=== PATIENT | female | born 1990 | race Caucasian/White ===

== ENCOUNTER 2017-06-06 17:32 | Emergency (ER) | payer OTHER ==
--- NOTE | 2017-06-06 18:45 | ED Physician Documentation ---
PD HPI ABD PAIN - Stated complaint Stated Complaint: SPOTTING/11WEEKS - Chief complaint Chief Complaint: Abd Pain - History obtained from History obtained from: Patient - History of Present Illness Timing - onset: Other ( at 11 weeks by dating ultrasound earlier this month with who has never received RhoGam.So presumed blood type Rh+. She has had a small amount of vaginal spotting in the last 2 days without cramping or significant pain. No fevers.) Review of Systems Constitutional: denies: Fever, Chills Cardiac: reports: Reviewed and negative Respiratory: reports: Reviewed and negative PD PAST MEDICAL HISTORY - Past Medical History Past Medical History: No - Past Surgical History Past Surgical History: No - Allergies Allergies/Adverse Reactions: Allergies Allergy/AdvReac Type Severity Reaction Status Date / Time No Known Drug Allergies Allergy Verified 06/06/17 17:43 - Social History Does the pt smoke?: No Smoking Status: Never smoker Does the pt drink ETOH?: No Does the pt have substance abuse?: No - Immunizations Immunizations are current?: Yes - POLST Patient has POLST: No PD ED PE NORMAL - Vitals Vital signs reviewed: Yes - General General: Alert and oriented X 3, No acute distress - Abdomen Abdomen: Normal bowel sounds, Soft, Non tender - Extremities Extremities: No edema, No calf tenderness / cord - Neuro Neuro: Alert and oriented X 3, Normal speech - Psych Psych: Normal mood, Normal affect Results - Vitals Vitals: Vital Signs - 24 hr 06/06/17 06/06/17 17:41 20:00 Temperature 36.4 C L 37.0 C Heart Rate 76 72 Respiratory 18 10 L Rate Blood Pressure 126/75 104/63 O2 Saturation 100 95 Oxygen O2 Source Room air - Labs Labs: Laboratory Tests 06/06/17 06/06/17 06/06/17 18:36 19:10 19:10 WBC 6.0 RBC 4.24 Hgb 12.6 Hct 37.9 MCV 89.4 MCH 29.6 MCHC 33.1 RDW 13.1 Plt Count 234 MPV 8.7 Neut # 3.6 Lymph # 2.0 [place] # 0.4 Eos # 0.0 Baso # 0.0 Absolute Nucleated RBC 0.00 Nucleated RBCs 0.0 Sodium 138 Potassium 3.8 Chloride 105 Carbon Dioxide 25 Anion Gap 8.0 BUN 9 Creatinine 0.6 Estimated GFR (MDRD) 118 Glucose 97 Calcium 9.3 HCG, Quant Urine Color YELLOW Urine Clarity CLEAR Urine pH 6.0 Ur Specific [place] 1.010 Urine Protein NEGATIVE Urine Glucose (UA) NEGATIVE Urine Ketones NEGATIVE Urine Occult Blood SMALL H Urine Nitrite NEGATIVE Urine Bilirubin NEGATIVE Urine Urobilinogen 1 (NORMAL) Ur Leukocyte Esterase NEGATIVE Urine RBC 0-5 Urine WBC 0-3 Ur Squamous Epith Cells MANY Squamous H Urine Bacteria Few Urine Mucus Few Strands Ur Microscopic Review INDICATED Urine Culture Comments NOT INDICATED Blood Type 06/06/17 06/06/17 19:10 19:10 WBC RBC Hgb Hct MCV MCH MCHC RDW Plt Count MPV Neut # Lymph # [place] # Eos # Baso # Absolute Nucleated RBC Nucleated RBCs Sodium Potassium Chloride Carbon Dioxide Anion Gap BUN Creatinine Estimated GFR (MDRD) Glucose Calcium HCG, Quant 6547.00 Urine Color Urine Clarity Urine pH Ur Specific [place] Urine Protein Urine Glucose (UA) Urine Ketones Urine Occult Blood Urine Nitrite Urine Bilirubin Urine Urobilinogen Ur Leukocyte Esterase Urine RBC Urine WBC Ur Squamous Epith Cells Urine Bacteria Urine Mucus Ur Microscopic Review Urine Culture Comments Blood Type O POSITIVE PD MEDICAL DECISION MAKING - ED course ED course: 27-year-old woman with threatened , no heart rate seen on sono. Given that she recently had an ultrasound showing a heart rate is portends a poor prognosis for the . Conservative care initially was advised and follow -up as well. Departure - Departure Disposition: 01 Home, Self Care Clinical Impression: Threatened affecting intrauterine Condition: Good Record reviewed to determine appropriate education?: Yes Instructions: ED Miscarriage Poss Comments: RECKECH WITH YOUR OB IN 1 WEEK, MAYBE FOR REPEAT ULTRASOUND. RETURN FOR HEAVY BLEEDING.
[2017-06-06 18:48] LABS: BILIRUBIN,URINE NEGATIVE (NEGATIVE)
[2017-06-06 18:50] LABS: UA w/ MICROSCOPIC CHARGE YES
[2017-06-06 18:53] LABS: UR CULTURE IF IND NOT INDICATED; WBC,URINE 0-3 /HPF (0-5)
[2017-06-06 19:20] LABS: BASOPHILS % (AUTO) 0.8 %; EOSINOPHILS % (AUTO) 0.7 %; HCT - HEMATOCRIT 37.9 % (37.0-47.0); HGB - HEMOGLOBIN 12.6 g/dL (12.0-16.0); LYMPHOCYTES % (AUTO) 33.4 %; MEAN CORPUSCULAR HEMOGLOBIN 29.6 pg (27.0-31.0); MEAN CORPUSCULAR HGB CONC 33.1 g/dL (32.0-36.0); MEAN CORPUSCULAR VOLUME 89.4 fL (81.0-99.0); MEAN PLATELET VOLUME 8.7 fL (7.9-10.8); MONOCYTES # (AUTO) 0.4 10^3/uL (0.0-1.0); NEUTROPHILS # (AUTO) 3.6 10^3/uL (1.5-6.6); NEUTROPHILS % (AUTO) 59.1 %; RED BLOOD COUNT 4.24 10^6/uL (4.20-5.40); RED CELL DISTRIBUTION WIDTH 13.1 % (12.0-15.0)
[2017-06-06 19:29] LABS: CALCIUM 9.3 mg/dL (8.5-10.3); CREATININE 0.6 mg/dL (0.4-1.0); POTASSIUM 3.8 mmol/L (3.5-5.0)
[2017-06-06 20:02] VITALS: BP 104/63
--- NOTE | 2017-06-06 20:22 | Ultrasound Preliminary Report ---
Exam: US OB First Trimester IMPRESSION: Single intrauterine , 8 weeks 5 days gestational age by crown-rump length, with lack of heartbeat compatible with demise. CHANDU The critical result notification system was initiated by Dr. Jose Stovall at 20:17 hrs on 06/06/17. The above critical findings were discussed with Dr. Roper by Dr. Jose Stovall at 20:20 hrs on . SITE ID: [id number]
--- NOTE | 2017-06-06 20:25 | Ultrasound Report ---
EXAM: FIRST TRIMESTER OBSTETRIC ULTRASOUND (Less than 11 weeks) EXAM DATE: 06/06/2017 07:58 PM. CLINICAL HISTORY: Vaginal bleeding. Spotting. Low back pain. . LMP: 03/10/2017. COMPARISONS: None. TECHNIQUE: Transabdominal and transvaginal ultrasound examination with static image documentation. CLINICAL DATES: EGA 11 with YASEMIN 12/20/2017 based on LMP. ASSESSMENT: Gestational Sac: Single intrauterine. Mean gestational sac diameter: 37.3 mm = 9 weeks 0 days. Embryo: CRL (crown-rump length) 21.8 mm = 8 weeks 5 days. Cardiac activity: 0 Beats per minute. Yolk sac: Nonvisualized. Amniotic fluid: Not accurately assessed at this gestational age. Early placenta: Not visible at this gestational age. Other: No perigestational fluid collection demonstrated. MATERNAL STRUCTURES: Uterus: Anteverted. Unremarkable. Cervix: Closed. Right Ovary: Unremarkable. Left Ovary: Unremarkable. Free Fluid: None. Other: None. IMPRESSION: Single intrauterine , 8 weeks 5 days gestational age by crown-rump length, with lack of heartbeat compatible with demise. DANAYA The critical result notification system was initiated by Dr. Jose Stovall at 20:17 hrs on 06/06/17. The above critical findings were discussed with Dr. Roper by Dr. Jose Stovall at 20:20 hrs on . Referring Provider Line: [phone] SITE ID: [id number]
== END 2017-06-06 20:20 | disposition home or self-care (01) ==
LOC: ED 17:32
DX: O20.0 Threatened abortion (principal); Z3A.11 11 weeks gestation of pregnancy
CPT/HCPCS: 36415; 76801; 76817; 80048; 81001; 81003; 84702; 85025; 86900; 86901; 87086; 99283

== ENCOUNTER 2018-09-16 09:54 | Day surgery (SDC) | payer OTHER ==
--- NOTE | 2018-09-16 09:13 | ANESTHESIA ---
Pre-Anesthesia VS, & Labs - Diagnosis Desires sterility - Procedure Lap. salpingectomy Height 5 ft 5 in Weight (kg) 100 kg Body Mass Index 33.4 - NPO >8 hours - Is Patient ?: No - Lab Results Lab results reviewed: No Home Medications and Allergies Home Medications: Ambulatory Orders No Known Home Medications 09/09/18 No Known Home Medications 09/09/18 Allergies/Adverse Reactions: Allergies Allergy/AdvReac Type Severity Reaction Status Date / Time No Known Drug Allergies Allergy Verified 09/09/18 09:40 Anes History & Medical History - Anesthetic History Anesthesia Complications: reports: No previous complications Family history of Anesthesia Complications: Denies Family history of Malignant Hyperthermia: Denies - Medical History Cardiovascular: reports: None Pulmonary: reports: None Gastrointestinal: reports: None Urinary: reports: None Neuro: reports: None Musculoskeletal: reports: None Endocrine/Autoimmune: reports: None, Other Blood Disorders: reports: None Skin: reports: None - Surgical History Gynecologic: Dilation and currettage Exam General: Alert, Oriented x3 Dental: Other (Some chipped/issing) Mouth Opening: Greater than 4 Fingerbreadths Neck Mobility: Normal Mallampati classification: I Thyromental Distance: greater than 6 cm Respiratory: Lungs clear Cardiovascular: Regular rate Mental/Cognitive Status: Alert/Oriented X3 Cognitive Status: Within normal limits Plan Anesthesia Type: General Consent for Procedure(s) Verified and Reviewed: Yes Code Status: Attempt Resuscitation ASA classification: 2-Mild systemic disease Is this case an emergency?: No
[2018-09-16] MEDS ORDERED: LIDOCAINE 1%-EPI 1:100000 30 ML MDV ONE (10:19)
[2018-09-16] MEDS ORDERED: BUPIVACAINE 0.25%-EPI 1:200000 PF 30 ML VIAL ONE (10:19)
[2018-09-16] MEDS ORDERED: LACTATED RINGERS 1,000 ML IV ONE ×3 (10:21→13:40)
[2018-09-16 10:50] LABS: HCG UR QUAL NEGATIVE
[2018-09-16] MEDS ORDERED: BUPIVACAINE 0.25% PF 30 ML VIAL ONE (11:19)
[2018-09-16] MEDS ORDERED: fentaNYL 250 MCG/5 ML VIAL IVP ONE (12:10)
[2018-09-16] MEDS ORDERED: LIDOCAINE-MPF 2% 5 ML VIAL IM ONE (12:10)
[2018-09-16] MEDS ORDERED: ONDANSETRON 4 MG/2 ML VIAL IVP ONE (12:10)
[2018-09-16] MEDS ORDERED: DEXAMETHASONE 4 MG/ML VIAL IVP ONE (12:10)
[2018-09-16] MEDS ORDERED: PROPOFOL 200 MG/20 ML VIAL IVP ONE (12:10)
[2018-09-16] MEDS ORDERED: ROCURONIUM 50 MG/5 ML VIAL IVP ONE (12:10)
[2018-09-16] MEDS ORDERED: MIDAZOLAM 2 MG/2 ML VIAL IVP ONE (12:10)
[2018-09-16] MEDS ORDERED: ONDANSETRON 4 MG/2 ML VIAL IVP PRN (14:02)
[2018-09-16] MEDS ORDERED: HYDROcod/ACETAM 10 MG/325 MG TABLET PO PRN (14:02)
[2018-09-16 15:37] VITALS: BP 108/64
--- NOTE | 2018-09-16 16:05 | OPERATIVE REPORT ---
Operative Report - General Procedure Date: 09/16/18 Planned Procedure: Laparoscopic Bilateral Salpingectomy, LEEP Pre-Op Diagnosis: Desired Sterilzation, High-Grade Cervical Dysplasia Procedure Performed: Laparoscopic Bilateral Salpingectomies, Loop Electrocautery Excisional Procedure Post Op Diagnosis: TRUDI - Procedure Note Primary Surgeon: Dr. Nancy Shaikh Secondary Surgeon: Dr. Don Corral Anesthesia Provider: EMANUEL Gramajo Anesthesia Technique: General ET tube, Local Pathology: Left fallopian tube, right fallopian tube, LEEP right, LEEP left, LEEP posterior, Endocervical curettage IV Fluids (mL): 1,100 Estimated Blood Loss (mL): 250 Urine Output (mL): 20 Complications: Heavy bleeding at LEEP site - Other Other Information/Narrative: Indication: The patient is a 28-year-old 5 para 4 abortus 1 female here for laparoscopic bilateral salpingectomies and LEEP procedure. Surgery is for permanent sterilization and management of high-grade cervical dysplasia (FINA-2). She and her spouse feel they have completed their childbearing and desires sterilization. Her spouse cannot consider vasectomy, as he is not permitted to have elective surgery while awaiting a medical board. They are desiring long-term permanent sterilization. Her menses are regular, light, and not painful. She does not wish to continue hormonal control for the long- term, the options of long-acting reversible contraceptives have been reviewed previously. She also has a history of high-grade Pap smear. Colposcopy performed in the clinic noted FINA-2 at the 5 o'clock position all the biopsy sites noted FINA-1. Risks, benefits, limitations, alternatives, and expectations or surgery were discussed, and the consent was reviewed and signed prior to the date of surgery. Findings: The ovaries appeared slightly enlarged bilaterally with no discrete cysts or masses noted. The fallopian tubes were also normal in appearance. The uterus was anteverted and normal in appearance. There were no endometriosis lesions or adhesions noted throughout the abdomen or pelvis. During the LEEP, application of Lugol's solution to the cervix noted a large transformation zone at the cervix, which was completely excised with a LEEP. She had a notable enterocele, just posterior to the posterior LEEP biopsy site. There was evidence of a healed sidewall vaginal laceration, which was left in situ.. Procedure: The patient was taken to the operating room, where general endotracheal anesthesia was administered without difficulty. She was then positioned with her lower extremities in yellow-fin stirrups. Perineum, vagina, and abdomen were then prepped and draped in sterile fashion, and an in-and-out catheterization was performed. Time out was then performed. Attention was first turned to placement of a uterine manipulator. A sterile bivalve speculum was inserted, and the cervix grasped with a single-toothed te naculum. The cervix was then dilated until a HUMI uterine manipulator could be placed and balloon inflated. The tenaculum and speculum were then removed. Attention was then turned to the laparoscopy. 0.25% Marcaine, plain, was injected infraumbilically, then a 7-mm vertical skin incision made. A Verrees needle was then inserted through the anterior layers of the abdominal wall with saline drop test suggesting intraperitoneal placement. Carbon dioxide gas insufflation was then performed with appropriate opening pressures noted. Once 2 L of gas was instilled, a 0-degree, 5 mm laparoscope was inserted into a 5 mm trocar and passed through the anterior layers of the abdominal wall using Optiview technique. The abdomen was visualized, then 2 additional ports placed at the right and left lower quadrants, first instilling local anesthetic then placing 5 mm ports. The patient was placed into Trendelenberg and bowel swept out of the cul-de-sac. The left distal fallopian tube was grasped and pulled anteriorly while the left tubo-ovarian ligament was cross-clamped, cauterized, and cut using the PlasmaKinetic. This incision was then extended medially across the mesosalpinx until the cornual region was reached. The tube was then cauterized and cut, it from the uterus. The tube was then removed from the pelvic through the trocar. Attention was then turned to the right side, where the dissection was completed in similar fashion. Here some bleeding was noted adjacent to the ovarian vascular pedicle. This was controlled with Bovie cauterye. The right tube was dissected and removed from the abdoment through the trocar. At this point, the laparoscopic procedure was deemed complete. The gas was allowed to escape, and the trocars removed. The incisions were then closed with 4-0 monocryl in a subcuticular fashion followed by Dermabond. Attention was then turned to the patient's perineum, where the uterine manipulator was removed. An insulated Graves speculum was then inserted into the vagina, and Lugol's solution applied to the cervix. 1% lidocaine with epinephrine was then injected for a paracervical block. An insulated side-wall retractor was also needed given the width of the transformation zone. A 2 x 1 cm cautery loop was then utilized to excise first the right transformation zone followed by the left transformation zone. Heavy bleeding was noted quickly after the start of the procedure. Additional non-stained tissue was noted more posteriorly so a third pass was made at the posterior aspect of the transformation zone in order to ensure excision of the FINA-2 that had been noted at the 5 o'clock position on her colposcopy. With this last pass the tissue removed was notably adjacent to the enterocele, and a defect in the cervico- vaginal fascia was noted. Endocervical curettage was then performed, followed by rollerball cauterization over the bed of the LEEP. At the posterior aspect, the cauterization was limited to the edges of the fascial defect in order to avoid any injury to the underlying rectum. Here a running suture of 3-0 Vicryl was placed to reapproximate the fascial defect, followed by [id number] sutures as needed to achieve hemostasis. Care was taken to avoid injury to the rectum. Additional pressure and Monsels solution was applied as needed until hemostasis was achieved. At this point, the procedure was deemed complete. The patient was then replaced supine, awakened, extubated, and transferred to the PACU in stable condition. There were no complications. Sponge, lap, and needle count were correct x 3.
== END 2018-09-16 09:55 | disposition home or self-care (01) ==
LOC: SDS 09:54
PROVIDERS: ATTEND Obstetrics & Gynecology
PROC: 0UBC7ZZ Excision of Cervix, Via Natural or Artificial Opening (ICD-10-PCS; principal; 2018-09-16 11:15)
PROC: 0UT74ZZ Resection of Bilateral Fallopian Tubes, Percutaneous Endoscopic Approach (ICD-10-PCS; 2018-09-16 11:15)
DX: N87.1 Moderate cervical dysplasia (principal); Z30.2 Encounter for sterilization; E66.9 Obesity, unspecified; Z68.33 Body mass index [BMI] 33.0-33.9, adult
CPT/HCPCS: 57522; 58661; 81025; J3010; J7120

== ENCOUNTER 2018-10-02 22:02 | Emergency (ER) | payer OTHER ==
[2018-10-02 22:49] LABS: BASOPHILS # (AUTO) 0.1 10^3/uL (0.0-0.1); BASOPHILS % (AUTO) 0.8 %; EOSINOPHILS % (AUTO) 0.6 %; HGB - HEMOGLOBIN 11.3 g/dL (12.0-16.0); LYMPHOCYTES # (AUTO) 1.9 10^3/uL (1.5-3.5); LYMPHOCYTES % (AUTO) 24.2 %; MEAN CORPUSCULAR HEMOGLOBIN 28.5 pg (27.0-31.0); MEAN CORPUSCULAR HGB CONC 32.2 g/dL (32.0-36.0); MEAN CORPUSCULAR VOLUME 88.3 fL (81.0-99.0); MEAN PLATELET VOLUME 9.2 fL (7.9-10.8); MONOCYTES # (AUTO) 0.4 10^3/uL (0.0-1.0); MONOCYTES % (AUTO) 5.2 %; NEUTROPHILS # (AUTO) 5.4 10^3/uL (1.5-6.6); NEUTROPHILS % (AUTO) 69.2 %; PLT - PLATELET COUNT 250 10^3/uL (130-450); RED BLOOD COUNT 3.96 10^6/uL (4.20-5.40); RED CELL DISTRIBUTION WIDTH 13.5 % (12.0-15.0); WHITE BLOOD COUNT 7.7 x10^3/uL (4.8-10.8)
[2018-10-02] MEDS ORDERED: MORPHINE 2 MG/ML CARPUJECT IVP STA (22:57)
[2018-10-02 23:02] LABS: ALBUMIN 4.1 g/dL (3.2-5.5); ALBUMIN/GLOBULIN RATIO 1.2 (1.0-2.2); BILIRUBIN,TOTAL 0.4 mg/dL (0.2-1.0); CREATININE 0.7 mg/dL (0.4-1.0); TOTAL PROTEIN 7.5 g/dL (6.7-8.2)
[2018-10-02] MEDS ORDERED: IOVERSOL 320 100 ML VIAL IVP ONE ×2 (23:08→23:40)
--- NOTE | 2018-10-02 23:18 | ED Physician Documentation ---
History of Present Illness - Stated complaint Stated Complaint: CHEST PX - Chief complaint Chief Complaint: Cardiac - History obtained from History obtained from: Patient - History of Present Illness Timing: Today Pain level max: 8 Pain level now: 8 - Additonal information Additional information: 28-year-old female who underwent a bilateral salpingectomy on 09/16, started developing left-sided back pain today, now spreading up to the left shoulder and around the rib cage. States worse with breathing. Movement makes it worse as well. Has not taken anything for the pain. Had her postoperative visit today. No testing performed at that time. Does feel like it is hard to take a deep breath as well. No vomiting. No fevers. No diarrhea. 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 - Present Medications Home Medications: Ambulatory Orders Medication Instructions Recorded Confirmed Ibuprofen [Motrin] 800 mg PO Q8H PRN #30 tablet 10/03/18 Oxycodone HCl/Acetaminophen 1 - 2 each PO Q6H PRN #14 tablet 10/03/18 [Percocet 5-325 mg Tablet] - Allergies Allergies/Adverse Reactions: Allergies Allergy/AdvReac Type Severity Reaction Status Date / Time No Known Drug Allergies Allergy Verified 10/02/18 22:08 - Social History Does the pt smoke?: No Smoking Status: Never smoker Does the pt drink ETOH?: No Does the pt have substance abuse?: No - Immunizations Immunizations are current?: Yes - POLST Patient has POLST: No PD ED PE NORMAL - Vitals Vital signs reviewed: Yes - General General: Alert and oriented X 3, No acute distress, Well developed/nourished - HEENT HEENT: Moist mucous membranes - Neck Neck: Supple, no meningeal sign - Cardiac Cardiac: RRR, Strong equal pulses - Respiratory Respiratory: No respiratory distress, Clear bilaterally - Abdomen Abdomen: Soft, Non tender, Non distended - Back Back: No CVA TTP, No spinal TTP (No midline tenderness to palpation or percussion. No step-off or deformity. mild tenderness to the left of the thoracic spine.) - Derm Derm: Warm and dry - Extremities Extremities: No edema, No calf tenderness / cord - Neuro Neuro: Alert and oriented X 3 - Psych Psych: Normal mood, Normal affect Results - Vitals Vitals: Vital Signs - 24 hr 10/02/18 10/02/18 10/02/18 22:08 23:20 23:42 Temperature 36.6 C Heart Rate 75 76 66 Respiratory 16 20 24 Rate Blood Pressure 119/66 104/72 118/74 O2 Saturation 98 99 98 10/03/18 10/03/18 00:30 00:52 Temperature Heart Rate 64 67 Respiratory 20 24 Rate Blood Pressure 104/55 L 93/72 O2 Saturation 100 98 Oxygen O2 Source Room air - EKG (time done) 2210 Rate: Rate (enter#) (79) Rhythm: NSR [place]: Normal Intervals: Normal VA QRS: Normal Ischemia: Normal ST segments - Labs Labs: Laboratory Tests 10/02/18 10/02/18 10/02/18 22:40 22:40 22:40 WBC 7.7 RBC 3.96 L Hgb 11.3 L Hct 35.0 L MCV 88.3 MCH 28.5 MCHC 32.2 RDW 13.5 Plt Count 250 MPV 9.2 Neut # (Auto) 5.4 Lymph # (Auto) 1.9 [place] # (Auto) 0.4 Eos # (Auto) 0.0 Baso # (Auto) 0.1 Absolute Nucleated RBC 0.00 Nucleated RBC % 0.0 Sodium 136 Potassium 3.6 Chloride 101 Carbon Dioxide 26 Anion Gap 9.0 BUN 9 Creatinine 0.7 Estimated GFR (MDRD) 98 Glucose 101 H Calcium 9.0 Total Bilirubin 0.4 AST 18 ALT 11 Alkaline Phosphatase 80 Troponin I < 0.04 Total Protein 7.5 Albumin 4.1 Globulin 3.4 Albumin/Globulin Ratio 1.2 Lipase 17 L - Rads (name of study) CTPA Radiology: Prelim report reviewed, EMP read contemporaneously, See rad report ( No pulmonary emboli identified. Left lower lobe regions of lucency and positive mass-effect, suspicious for congenital air trapping/bronchial atresia or childhood bronchial insult from previous infection. 3. Diffuse ground-glass density throughout both lungs, favor underexpansion rather than diffuse alveolar filling process. Trace left pleural effusion with adjacent atelectasis. ) PD MEDICAL DECISION MAKING - ED course Complexity details: reviewed results, re-evaluated patient, considered differential, d/w patient ED course: 28-year-old female who presents to the emergency department what appears to be musculoskeletal pain in her left back. Negative pulmonary angiogram, given her recent surgery and left-sided chest pain with difficulty breathing, felt to be reasonable to rule out PE. No acute findings of acute coronary syndrome. Pain well controlled. Will continue supportive care and follow-up with her doctor. Neurological exam is normal. Patient counseled regarding signs and symptoms for which I believe and urgent re-evaluation would be necessary. Patient with good understanding of and agreement to plan and is comfortable going home at this time This document was made in part using voice recognition software. While efforts are made to proofread this document, sound alike and grammatical errors may occur. Departure - Departure Disposition: 01 Home, Self Care Clinical Impression: Back strain Qualifiers: Encounter type: initial encounter Qualified Code(s): S39.012A - Strain of muscle, fascia and tendon of lower back, initial encounter Condition: Good Instructions: ED Spasm Back No Trauma Follow-Up: RAINE COBOS PA-C [Primary Care Provider] - Within 1 week Prescriptions: Ibuprofen [Motrin] 800 mg PO Q8H PRN #30 tablet PRN Reason: PAIN &/OR FEVER Oxycodone HCl/Acetaminophen [Percocet 5-325 mg Tablet] 1 - 2 each PO Q6H PRN #14 tablet PRN Reason: pain Comments: Your blood work, EKG and CT scan are normal today. We will try to the you on pain medication for the next few days and see how you progress. Return if you worsen. Do not drink alcohol or drive while on narcotic pain medicine. Note that many narcotic pain relievers also contain tylenol/acetaminophen. Please ensure that your total dose of acetaminophen from all sources does not exceed 3 grams (3000mg) per day. You may constipated on this medication, take a stool softener such as "Colace" twice a day while you are on it. Also recommend a [id number] laxative such as senna or MiraLAX any day that you do not have a bowel movement. If you received narcotic pain medication in the emergency department, do not drive or operate machinery for the next 24 hours. Discharge Date/Time: 10/03/18 01:02
--- NOTE | 2018-10-03 00:05 | CT Report ---
Reason: L sided chest pain 2 weeks s/p BSO Procedure Date: 10/02/2018 Accession Number: [id number] / [id number] Procedure: CT - Chest Angio (PE) CPT Code: FULL RESULT: EXAM: CT ANGIOGRAM CHEST EXAM DATE: 10/02/2018 11:39 PM. CLINICAL HISTORY: Left-sided chest pain 2 weeks status post bilateral salpingo-oophorectomy. COMPARISON: None. TECHNIQUE: Routine helical imaging was performed through the chest in the pulmonary arterial phase. IV Contrast: Yes. Reconstructions: Coronal 3D MIP reconstructions.Sagittal and coronal. In accordance with CT protocol optimization, one or more of the following dose reduction techniques were utilized for this exam: automated exposure control, adjustment of mA and/or KV based on patient size, or use of iterative reconstructive technique. FINDINGS: Pulmonary Arteries: Technically adequate for evaluation through the segmental arteries. No evidence for acute or chronic pulmonary emboli. Lungs/Pleura: Unusual hyperlucencies in the left lower lobe with positive mass-effect. Diffuse ground-glass density throughout both lungs otherwise. Trace left effusion. No consolidative pneumonia is seen. Mediastinum: No acute aortic syndrome. No cardiac enlargement. No adenopathy. Upper Abdomen: Unremarkable. Other: None. IMPRESSION: 1. No pulmonary emboli identified. 2. Left lower lobe regions of lucency and positive mass-effect, suspicious for congenital air trapping/bronchial atresia or childhood bronchial insult from previous infection. 3. Diffuse ground-glass density throughout both lungs, favor underexpansion rather than diffuse alveolar filling process. 4. Trace left pleural effusion with adjacent atelectasis. RADIA
[2018-10-03] MEDS ORDERED: MORPHINE 2 MG/ML CARPUJECT IVP STA (00:26)
[2018-10-03 00:53] VITALS: BP 93/72
== END 2018-10-03 01:02 | disposition home or self-care (01) ==
LOC: ED 22:02
DX: R07.89 Other chest pain (principal); S39.012A Strain of muscle, fascia and tendon of lower back, initial encounter
CPT/HCPCS: 36415; 71275; 80053; 83690; 84484; 85025; 93005; 96374; 96375; 99283; 99284; Q9967